=== PATIENT | male | born 1995 | race African-American/Black ===

== ENCOUNTER 2017-03-14 08:39 | Emergency (ER) | payer BC ==
[~2017-03-14] VITALS: Ht 180.3 cm; Wt 102.9 kg
[2017-03-14 08:43] VITALS: TEMP 36.8; Ht 180.3 cm; Wt 102.9 kg
[2017-03-14] MEDS ORDERED: DEXT1CAP37 PO (09:15)
[2017-03-14] MEDS ORDERED: DEXT1CAP36 PO (09:15)
--- NOTE | 2017-03-14 10:03 | EMERGENCY ROOM VISIT NOTE ---
History Report prepared by Radu: Naz Swanson Under the Supervision of: Dr. Dashawn Cohen M.D. First contact with patient: 09:50 Chief Complaint: SORETHROAT Stated Complaint: STREP THROAT History of Present Illness The patient is a 21 year old male who presents to the Emergency Room with complaints of a persistent illness that began one week ago. He currently rates his discomfort as a 6/10 in severity. The patient states that each time with the season change he develops a cold. He states that he noticed a sore throat and nasal congestion. The patient states that this weekend his symptoms worsened, but additionally notes that he went out. He states that he is unsure if he was around anyone who had strep throat this weekend. The patient states that his symptoms seemed to let up slightly. He states that he still notices the nasal congestion and a slight sore throat. The patient denies any fever, vomiting, or diarrhea. He states that he has experienced a cough. The patient states that he has noticed neck lymphadenopathy. He states that he typically uses DayQuil and NyQuil for his symptoms. The patient denies any ear pain. Source of History: patient Onset: one week ago Position: other (global) Symptom Intensity: 6/10 Quality: other (illness) Timing: other (persistent) Associated Symptoms: + sorethroat, + cough, + lymphadenopathy (neck), No fevers, No vomiting, No diarrhea Note: Associated Symptoms: nasal congestion Review of Systems See HPI for pertinent positives & negatives. A total of 10 systems reviewed and were otherwise negative. Past Medical & Surgical Medical Problems: (1) No Known Active Medical Problems Family History Patient reports no known family medical history. Social History Smoking Status: Never Smoker Smokeless Tobacco Use: No Alcohol Use: occasionally Marital Status: single Housing Status: lives with roommate Occupation Status: [employer] student Current/Historical Medications Scheduled PRN Yqmehyovymgxzzch-Aiqpesixoz-Qp (Night Time Multi-Symptom), 1 CAP PO UD PRN for COLD SYMPTOMS Dextromethorphan-Phenylephrine (Day Time Multi-Symptom Co), 1 CAP PO UD PRN for COLD SYMPTOMS Allergies Coded Allergies: No Known Allergies (Unverified , 03/14/17) Physical Exam Vital Signs Date Time Temp Pulse Resp B/P (MAP) Pulse Ox O2 Delivery O2 Flow Rate FiO2 10/5/17 10:12 90 18 129/88 99 03/14/17 08:45 98 Room Air 03/14/17 08:43 36.8 99 18 138/93 98 Room Air Physical Exam GENERAL: Patient is in no acute distress. HEENT: No acute trauma, normocephalic atraumatic, mucous membranes moist, mild to moderate nasal congestion, no scleral icterus. Mild throat erythema with no exudate, no evidence for peritonsillar abscess. NECK: No stridor, no adenopathy, no meningismus, trachea is midline. LUNGS: Clear to auscultation bilaterally, no wheeze, no rhonchi, breath sounds equal. HEART: Without murmurs gallops or rubs, regular rate and rhythm. ABDOMEN: Soft, nontender, bowel sounds positive, no hernias, no peritonitis. EXTREMITIES: No cyanosis or edema, full range of motion of all the joints without pain or difficulty, no signs for acute trauma. NEUROLOGIC: Oriented x 3, no acute motor or sensory deficits, no focal weakness. SKIN: No rash, no jaundice, no diaphoresis. Medical Decision & Procedures ED Course 0954: The patient was evaluated in room A11B. A complete history and physical exam was performed. I discussed the exam findings with him and I discussed the treatment plan. He verbalized complete understanding and agreement. He is ready for discharge. Medical Decision The patient is a 21 year old male who presents to the ED with complaints of an illness. Differential diagnoses considered include URI, pharyngeal abscess, strep pharyngitis, sinusitis, bronchitis, viral pharyngitis. The patient presents with URI symptoms. He had concerns for possible strep pharyngitis as he has had an ongoing sore throat. On exam, there was some mild throat erythema, no exudate. He did not have any significant cervical lymphadenopathy. His lungs were clear. Strep testing was negative. The patient is being discharged to continue uomu-znw-grvkall medications for his cold. He was reassured. Medication Reconcilliation Current Medication List: was personally reviewed by me Impression Primary Impression: Sore throat Additional Impression: URI (upper respiratory infection) Scribe Attestation The scribe's documentation has been prepared under my direction and personally reviewed by me in its entirety. I confirm that the note above accurately reflects all work, treatment, procedures, and medical decision making performed by me. Departure Information Dispostion Home / Self-Care Referrals No Doctor, Assigned (PCP) Forms HOME CARE DOCUMENTATION FORM, IMPORTANT VISIT INFORMATION Patient Instructions My [facility] Additional Instructions fluids rest sudafed from behind the counter for congestion we will call if the back up strep testing is positive--initial result was negative Problem Qualifiers
[2017-03-14 10:12] VITALS: BP 129/88; PULSE 90; O2SAT 99
== END 2017-03-14 10:13 | disposition home or self-care (01) ==
LOC: C.EDB 08:42 → C.EDA 10:13
DX: J02.9 Acute pharyngitis, unspecified (principal); J06.9 Acute upper respiratory infection, unspecified